=== PATIENT | male | born 1955 | race Caucasian/White ===

== ENCOUNTER 2022-09-07 07:47 | Outpatient (CLI) | payer OTHER, SELFPAY | END 2022-09-07 07:48 | disposition home or self-care (01) | LOC: AMB 09-08 22:02 | PROVIDERS: Visit Provider Family Medicine | DX: S29.9XXA Unspecified injury of thorax, initial encounter (principal); W06.XXXA Fall from bed, initial encounter; Y92.092 Bedroom in other non-institutional residence as the place of occurrence of the external cause | CPT/HCPCS: A0425; A0427 ==

== ENCOUNTER 2022-09-08 16:49 | Outpatient (CLI) | payer OTHER, SELFPAY | END 2022-09-08 16:50 | disposition home or self-care (01) | LOC: AMB 09-09 02:48 | PROVIDERS: Visit Provider Family Medicine | DX: R11.10 Vomiting, unspecified (principal) | CPT/HCPCS: A0425; A0427 ==

== ENCOUNTER 2022-10-05 13:43 | Outpatient (CLI) | payer OTHER, SELFPAY | END 2022-10-05 13:44 | disposition home or self-care (01) | LOC: AMB 10-06 06:17 | PROVIDERS: Visit Provider Family Medicine | DX: M54.50 Low back pain, unspecified (principal); R53.1 Weakness | CPT/HCPCS: A0425; A0429 ==

== ENCOUNTER 2023-02-12 14:49 | Outpatient (CLI) | payer OTHER, SELFPAY | END 2023-02-12 14:50 | disposition home or self-care (01) | LOC: AMB 02-16 11:02 | PROVIDERS: Visit Provider Family Medicine | DX: R10.9 Unspecified abdominal pain (principal) | CPT/HCPCS: A0425; A0427 ==

== ENCOUNTER 2023-02-21 22:08 | Outpatient (CLI) | payer OTHER, SELFPAY | END 2023-02-21 22:09 | disposition home or self-care (01) | LOC: AMB 02-23 13:19 | PROVIDERS: Visit Provider Emergency Medicine Emergency Medical Services | DX: R10.9 Unspecified abdominal pain (principal) | CPT/HCPCS: A0425; A0429 ==

== ENCOUNTER 2023-03-30 07:53 | Outpatient (CLI) | payer OTHER, SELFPAY | END 2023-03-30 07:54 | disposition home or self-care (01) | LOC: AMB 04-02 19:40 | PROVIDERS: Visit Provider Family Medicine | DX: R19.7 Diarrhea, unspecified (principal); R10.9 Unspecified abdominal pain | CPT/HCPCS: A0425; A0429 ==

== ENCOUNTER 2023-09-06 08:14 | Outpatient (CLI) | payer OTHER, SELFPAY | END 2023-09-06 08:15 | disposition home or self-care (01) | LOC: AMB 09-09 11:18 | PROVIDERS: Visit Provider Emergency Medicine | DX: R10.9 Unspecified abdominal pain (principal) | CPT/HCPCS: A0425; A0427 ==

== ENCOUNTER 2023-09-28 10:03 | Outpatient (CLI) | payer OTHER, SELFPAY | END 2023-09-28 10:04 | disposition home or self-care (01) | LOC: AMB 09-29 07:03 | PROVIDERS: Visit Provider Family Medicine | DX: R10.9 Unspecified abdominal pain (principal) | CPT/HCPCS: A0425; A0427 ==

== ENCOUNTER 2023-12-07 12:02 | Outpatient (CLI) | payer OTHER, SELFPAY | END 2023-12-07 12:03 | disposition home or self-care (01) | LOC: AMB 12-15 20:51 | PROVIDERS: Visit Provider Family Medicine | DX: S31.819A Unspecified open wound of right buttock, initial encounter (principal) | CPT/HCPCS: A0425; A0429 ==

== ENCOUNTER 2024-03-26 13:42 | Outpatient (CLI) | payer OTHER, SELFPAY | END 2024-03-26 13:43 | disposition home or self-care (01) | LOC: AMB 03-30 23:59 | PROVIDERS: Visit Provider Emergency Medicine Emergency Medical Services | DX: R33.9 Retention of urine, unspecified (principal); M54.9 Dorsalgia, unspecified | CPT/HCPCS: A0425; A0427 ==

== ENCOUNTER 2024-05-15 00:57 | Outpatient (CLI) | payer OTHER, SELFPAY | END 2024-05-15 00:58 | disposition home or self-care (01) | LOC: AMB 05-26 00:04 | PROVIDERS: Visit Provider Emergency Medicine | DX: R10.9 Unspecified abdominal pain (principal); R11.10 Vomiting, unspecified | CPT/HCPCS: A0425; A0433 ==

== ENCOUNTER 2024-06-15 11:38 | Outpatient (CLI) | payer MEDICARE, MEDICAID, SELFPAY | END 2024-06-15 11:39 | disposition home or self-care (01) | LOC: AMB 06-21 00:39 | PROVIDERS: Visit Provider Family Medicine | DX: K94.03 Colostomy malfunction (principal) | CPT/HCPCS: A0425; A0427 ==

== ENCOUNTER 2024-06-17 08:02 | Outpatient (CLI) | payer MEDICARE, MEDICAID, SELFPAY | END 2024-06-17 08:03 | disposition home or self-care (01) | LOC: AMB 06-19 17:19 | PROVIDERS: Visit Provider Family Medicine | DX: R10.9 Unspecified abdominal pain (principal) | CPT/HCPCS: A0425; A0429 ==

== ENCOUNTER 2024-07-16 14:41 | Outpatient (CLI) | payer MEDICARE, MEDICAID, SELFPAY | END 2024-07-16 14:42 | disposition home or self-care (01) | LOC: AMB 07-19 04:11 | PROVIDERS: Visit Provider Family Medicine | DX: R33.9 Retention of urine, unspecified (principal) | CPT/HCPCS: A0425; A0427 ==

== ENCOUNTER 2024-08-03 16:36 | Outpatient (CLI) | payer MEDICARE, MEDICAID, SELFPAY | END 2024-08-03 16:37 | disposition home or self-care (01) | LOC: AMB 08-06 03:28 | PROVIDERS: Visit Provider Emergency Medicine | DX: S31.809A Unspecified open wound of unspecified buttock, initial encounter (principal); M54.50 Low back pain, unspecified; Z74.01 Bed confinement status | CPT/HCPCS: A0425; A0427 ==